=== PATIENT | female | born 1990 | race Caucasian/White ===

== ENCOUNTER 2018-03-02 09:16 | Emergency (ER) | payer OTHER ==
[~2018-03-02] VITALS: Ht 162.6 cm; Wt 89.8 kg
--- NOTE | 2018-03-02 09:23 | NUR ---
PT BIB [facility] WITH A C/O RT INDEX FINGER INJURY AND SYNCOPAL EPISODE. PT HAS A LAC APPROX 3 CM ON THE LEFT BACK OF THE HEAD. PT STATED THAT SHE HIT THE CORNER OF A METAL CABINET. PT WAS SEEN BY DR. HORAN.
--- NOTE | 2018-03-02 09:28 | NUR ---
PT'S LAC WAS CLEANED WITH NS.
[2018-03-02] MEDS ORDERED: LIDOCAINE 1%-EPI 1:100,000 20 ML VIAL TP ONE (09:30)
[2018-03-02] MEDS ORDERED: TDAP [DIPH/PERTUSSIS/TET] 0.5 ML VIAL IM ONE ×2 (09:30→09:37)
[2018-03-02] MEDS ORDERED: LIDOCAINE 1%-EPI 1:100,000 20 ML VIAL ONE (09:37)
--- NOTE | 2018-03-02 09:44 | NUR ---
LAB DRAW AT THE BEDSIDE.
[2018-03-02 09:57] LABS: BASOPHILS % (AUTO) 0.4 % (0.0-2.0); EOSINOPHILS % (AUTO) 1.6 % (0.0-6.0); HEMATOCRIT 38 % (33-45); LYMPHOCYTES % (AUTO) 22.3 % (20.0-44.0); MEAN CORPUSCULAR HEMOGLOBIN 31 PG (26.0-33.0); MEAN CORPUSCULAR HGB CONC 34 g/dl (31.0-36.0); MEAN CORPUSCULAR VOLUME 92 fL (82-100); MONOCYTES # (AUTO) 0.5 /CMM (0.1-1.30); NEUTROPHILS # (AUTO) 6.4 /CMM (1.8-8.9); NEUTROPHILS % (AUTO) 70.7 % (43.0-81.0); PLATELET COUNT (AUTO) 251 /CMM (150-450); RED BLOOD CELL COUNT(AUTO) 4.16 MIL/uL (4.0-5.2); WHITE BLOOD COUNT (AUTO) 9.1 K/uL (4.3-11.0)
[2018-03-02 10:09] LABS: CALCIUM, SERUM 8.8 mg/dL (8.5-10.1); CREATININE 0.7 mg/dL (0.6-1.3); POTASSIUM 3.6 mmol/L (3.5-5.1)
--- NOTE | 2018-03-02 10:31 | NUR ---
PT LEFT FOR CT VIA [facility]
--- NOTE | 2018-03-02 10:48 | NUR ---
PT RETURNED FROM CT. VSS.
--- NOTE | 2018-03-02 11:03 | NUR ---
DR. HORAN IS AT THE BEDSIDE.
--- NOTE | 2018-03-02 11:19 | NUR ---
Patient discharged to home in stable condition. Written and verbal after care instructions given. Patient verbalizes understanding of instruction.
--- NOTE | 2018-03-02 11:21 | NUR ---
Patient discharged to home in stable condition. Written and verbal after care instructions given. Patient verbalizes understanding of instruction. PT AMBULATED OUT WITH A STEADY GAIT. VSS. PT'S FATHER IS DRIVING PT HOME.
[2018-03-02 11:25] VITALS: BP 148/81
== END 2018-03-02 11:25 | disposition home or self-care (01) ==
LOC: ER 09:18
DX: S01.01XA Laceration without foreign body of scalp, initial encounter (principal); S09.8XXA Other specified injuries of head, initial encounter; R55 Syncope and collapse; M79.646 Pain in unspecified finger(s); W18.39XA Other fall on same level, initial encounter; W23.0XXA Caught, crushed, jammed, or pinched between moving objects, initial encounter; Y93.29 Activity, other involving ice and snow; Y92.89 Other specified places as the place of occurrence of the external cause; Y99.8 Other external cause status
CPT/HCPCS: 12002; 36415; 70450; 73140; 80048; 84703; 85025; 90471; 90715; 93005; 99285; A4606; A6403 ×2; J3490; Z7610

== ENCOUNTER 2018-03-11 13:56 | Emergency (ER) | payer OTHER ==
[~2018-03-11] VITALS: Ht 162.6 cm; Wt 86.2 kg
[2018-03-11 13:56] VITALS: BP 134/83
== END 2018-03-11 14:15 | disposition home or self-care (01) ==
LOC: ER 13:59
DX: S01.01XD Laceration without foreign body of scalp, subsequent encounter (principal)
CPT/HCPCS: 99281; A4606; Z7502; Z7610